=== PATIENT | female | born 1995 | race Caucasian/White ===

== ENCOUNTER 2020-02-26 17:33 | Emergency (ER) | payer OTHER ==
[~2020-02-26] VITALS: Ht 165.1 cm; Wt 94.3 kg
[2020-02-26 17:38] VITALS: Ht 165.1 cm; Wt 94.3 kg
[2020-02-26 18:52] VITALS: BP 117/69
== END 2020-02-26 18:52 | disposition home or self-care (01) ==
LOC: ED 17:33
DX: G51.0 Bell's palsy (principal)